=== PATIENT | male | born 1960 | race Caucasian/White ===

== ENCOUNTER 2016-11-26 12:51 | Observation (INO) | payer OTHER, MEDICARE ==
[~2016-11-26] VITALS: Ht 162.6 cm; Wt 69.3 kg
[2016-11-26] MEDS ORDERED: humuLIN REG INSULIN ONE (13:54)
[2016-11-26] MEDS ORDERED: ORPHENADRINE 60 MG/2 ML AMP ONE (16:02)
[2016-11-26 20:09] VITALS: BP_SYST 97; RESP 18; TEMP 97.4
[2016-11-26 20:15] VITALS: Ht 162.6 cm; Wt 69.3 kg
[2016-11-26] MEDS ORDERED: SODIUM CHLORIDE 0.9% 1,000 ML IV SCH (21:05)
[2016-11-26] MEDS ORDERED: GLUCAGON 1 MG VIAL IM PRN (21:05)
[2016-11-26] MEDS ORDERED: DEXTROSE 50% SYRINGE 50 ML IV PRN (21:05)
[2016-11-26 22:34] VITALS: BP_SYST 83; RESP 18
[2016-11-26] MEDS: PREGABALIN 25 MG CAP PO SCH (23:15)
[2016-11-27] MEDS ORDERED: SODIUM CHLORIDE 0.9% 500 ML IV ONE
[2016-11-27 03:51] VITALS: BP_SYST 102; RESP 18; TEMP 97.6
[2016-11-27 08:26] VITALS: BP_SYST 132; RESP 18; TEMP 97.7
[2016-11-27] MEDS: SEVELAMER HCL 800 MG TAB PO SCH ×3 (08:36→18:03)
[2016-11-27] MEDS: ASPIRIN 81 MG CHEW TAB PO SCH (08:36)
[2016-11-27] MEDS: SOD BICARB 650 MG TAB PO SCH (08:36)
[2016-11-27] MEDS: PREGABALIN 25 MG CAP PO SCH ×2 (08:36→20:31)
[2016-11-27] MEDS: CITALOPRAM 20 MG TAB PO SCH (08:36)
[2016-11-27] MEDS ORDERED: CEFTRIAXONE 1 GM in SODIUM CHLORIDE 0.9% 50 ML IV SCH (09:00)
[2016-11-27 11:07] VITALS: BP_SYST 125; RESP 18; TEMP 97.4
[2016-11-27 17:45] VITALS: BP_SYST 114; RESP 18; TEMP 97.6
[2016-11-27 19:40] VITALS: BP_SYST 112; RESP 18; TEMP 97.6
[2016-11-27 23:12] VITALS: BP_SYST 114; RESP 16; TEMP 97.6
[2016-11-28 03:54] VITALS: BP_SYST 106; RESP 18; TEMP 97.5
[2016-11-28 07:54] VITALS: BP_SYST 107; RESP 18; TEMP 97.4
[2016-11-28] MEDS: SEVELAMER HCL 800 MG TAB PO SCH ×3 (09:23→17:13)
[2016-11-28] MEDS: ASPIRIN 81 MG CHEW TAB PO SCH (09:25)
[2016-11-28] MEDS: SOD BICARB 650 MG TAB PO SCH (09:25)
[2016-11-28] MEDS: CITALOPRAM 20 MG TAB PO SCH (09:25)
[2016-11-28] MEDS: PREGABALIN 25 MG CAP PO SCH (09:26)
[2016-11-28 11:04] VITALS: BP_SYST 112; RESP 18; TEMP 97.5
[2016-11-28 15:14] VITALS: BP_SYST 98; RESP 18
[2016-11-28 17:57] VITALS: BP_SYST 98; RESP 18; TEMP 97.5
== END 2016-11-28 13:57 | disposition home or self-care (01) ==
LOC: ENRESERVDT → ENRESERVTM → ER 12:51 → ENPENDDIS 16:55 → EMR 16:55 → 4NT 19:58
PROVIDERS: ADMIT Family Medicine; ATTEND Family Medicine
DX: E11.65 Type 2 diabetes mellitus with hyperglycemia (principal); R09.02 Hypoxemia; Z98.84 Bariatric surgery status; Z79.82 Long term (current) use of aspirin; E78.00 Pure hypercholesterolemia, unspecified; I12.0 Hypertensive chronic kidney disease with stage 5 chronic kidney disease or end stage renal disease; E11.22 Type 2 diabetes mellitus with diabetic chronic kidney disease; N18.6 End stage renal disease; Z99.2 Dependence on renal dialysis; Z79.4 Long term (current) use of insulin; D63.1 Anemia in chronic kidney disease
CPT/HCPCS: 36415; 70450; 71010; 80053; 82553; 82947; 83690; 84484; 85025; 85379; 87040; 87071; 89051; 96372; 96374; 99219